=== PATIENT | female | born 1950 | race Caucasian/White ===

== ENCOUNTER 2017-07-14 12:35 | Outpatient (CLI) | payer MEDICARE | END 2017-07-14 12:36 | disposition home or self-care (01) | LOC: BICULT 12:35 | PROVIDERS: ATTEND Nurse Practitioner Family | DX: E10.65 Type 1 diabetes mellitus with hyperglycemia (principal); D33.3 Benign neoplasm of cranial nerves; R51 Headache | CPT/HCPCS: 93880 ==

== ENCOUNTER 2019-03-01 07:21 | Outpatient (CLI) | payer MEDICARE ==
--- NOTE | 2019-03-01 08:04 | ULT ---
COMPLETE ABDOMEN ULTRASOUND INDICATION: History of diabetes mellitus, postmenopausal problems and abdominal pain decreased with p osition change TECHNIQUE: Grayscale, color Doppler and spectral Doppler were obtained of the abdomen. COMPARISON: None FINDINGS: Liver: Normal. Main portal vein: Patent with appropriate hepatopedal flow Pancreas: Visualized aspects appeared normal. Gallbladder: Surgically absent Common bile duct:5.3 mm. Right kidney: The right kidney measured 9.3 x 4.6 x 3.8 cm. No focal renal lesion or hydronephrosis i s evident. Left kidney: The left kidney measured 10.4 x 5.2 x 5.5 cm. There is a 2.2 cm cyst seen within the lef t mid kidney. Aorta and IVC: Appeared within normal limits. Spleen: 9.75cm in length. No focal splenic lesion is evident. Free fluid: None. IMPRESSION: 1. No acute sonographic abnormality of the abdomen. 2. Left renal cyst
== END 2019-03-01 07:22 | disposition home or self-care (01) ==
LOC: BICULT 07:21
PROVIDERS: ATTEND Nurse Practitioner Family
DX: N95.9 Unspecified menopausal and perimenopausal disorder (principal); R10.9 Unspecified abdominal pain; E10.65 Type 1 diabetes mellitus with hyperglycemia; N28.1 Cyst of kidney, acquired
CPT/HCPCS: 93975